=== PATIENT | female | born 1995 | race Asian ===

== ENCOUNTER 2019-05-31 18:55 | Emergency (ER) | payer BC ==
[~2019-05-31] VITALS: Ht 175.3 cm; Wt 59.4 kg
[2019-05-31 19:15] VITALS: BP_SYST 122
--- NOTE | 2019-05-31 19:20 | NUR ---
Placed in room 5 Side rails up. Report given to Deneen SINGLETON.
--- NOTE | 2019-05-31 19:25 | NUR ---
Patient AOx4, ambulatory, presents to ER with complaint of generalized rash to bilateral lower extremities x2 weeks with worsening of symptoms today. Patient states she has been taking Lamictal since 05/10/19 and said per her psychiatrist, recommended she get evaluation for possible Jose Manuel Henrik's Syndrome. Patient states she previously has been on Lamictal in the past, but no rash presented then. Patient states site is slightly itchy and has applied cortisol gel to site. Hx of bipolar disorder.
--- NOTE | 2019-05-31 19:48 | NUR ---
ER MD Luz at bedside for medical evaluation.
[2019-05-31 20:28] VITALS: BP_SYST 120
--- NOTE | 2019-05-31 20:28 | NUR ---
Patient given written and verbal discharge instructions and verbalizes understanding. ER MD discussed with patient the results and treatment provided. Patient in stable condition. ID arm band removed. Rx of Zovirax topical ointment given. Patient educated on pain management and to follow up with PMD. Pain Scale 0/10. Opportunity for questions provided and answered. Medication side effect fact sheet provided.
== END 2019-05-31 20:28 | disposition home or self-care (01) ==
LOC: SED 18:55
DX: R21 Rash and other nonspecific skin eruption (principal); F31.9 Bipolar disorder, unspecified
CPT/HCPCS: 99283